=== PATIENT | female | born 1990 | race African-American/Black ===

== ENCOUNTER 2022-02-11 17:54 | Emergency (ER) | payer MEDICAID ==
[~2022-02-11] VITALS: Ht 165.1 cm; Wt 175.0 kg
[2022-02-11 21:00] VITALS: BP 166/89
--- NOTE | 2022-02-11 21:44 | RAD ---
Exam: Right knee 3 views INDICATION: Chronic pain, swelling TECHNIQUE: Frontal, lateral and oblique views of the right knee Comparisons: None FINDINGS: Bone mineralization is normal. No acute or healed fractures. Soft tissues are unremarkable. Joint spa ashlee are well-maintained. IMPRESSION: No acute osseous abnormality Electronically signed by: Charley Chan MD (02/11/2022 9:41 PM) GERA
[2022-02-11] MEDS ORDERED: MELO7.5T5 PO (22:21)
[2022-02-11] MEDS ORDERED: METH4TAB2 PO (22:21)
--- NOTE | 2022-02-11 22:21 | PHYS DOC ---
Past Medical History Past Surgical History: No Surgical History Smoking Status: Never Smoker Alcohol Use: None General Adult EDM: Chief Complaint: KNEE SWELLING HPI: HPI: Patient is a 32 year old female who presents to the ED today complaining 6 out of 10 right knee pain, patient states pain has been going on for months. She states she has followed up with her own PCP and they could not find any acute cause for the pain. Patient denies any injury. States the pain is sharp and intermittent worse on walking. She states has been taking NSAIDs with no relief to the pain. Review of Systems: Review of Systems: Constitutional: Denies fever or chills. [] Musculoskeletal: Reports right knee pain Integument: Denies rash. [] Neurologic: Denies headache, focal weakness or sensory changes. [] [] Psychiatric: Denies depression or anxiety. [] Heart Score: C/O Chest Pain: N/A Risk Factors: Risk Factors: DM, Current or recent (<one month) smoker, HTN, HLP, family history of CAD, obesity. Risk Scores: Score 0 - 3: 2.5% MACE over next 6 weeks - Discharge Home Score 4 - 6: 20.3% MACE over next 6 weeks - Admit for Clinical Observation Score 7 - 10: 72.7% MACE over next 6 weeks - Early Invasive Strategies Allergies: Allergies: Allergies Coded Allergies Type Severity Reaction Last Updated Verified No Known Drug Allergies 02/11/22 No Physical Exam: PE: Constitutional: Well developed, well nourished, no acute distress, non-toxic appearance. [] Skin: Warm, dry, no erythema, no rash. [] Back: No tenderness, no CVA tenderness. [] Extremities: Morbidly obese patient, right knee with no obvious deformity, no tenderness, range of motion is intact to the exam difficult due to weight. +2 right pedal pulse. Cap refill less than 2 seconds of right lower extremity Neurologic: Alert and oriented X 3, normal motor function, normal sensory fun ction, no focal deficits noted. [] Psychologic: Affect normal, judgement normal, mood normal. [] Current Patient Data: Vital Signs: Vital Signs Date Time Temp Pulse Resp B/P (MAP) Pulse Ox O2 Delivery O2 Flow Rate FiO2 02/11/22 21:00 98.5 82 18 166/89 (114) 99 Room Air 98.5 EKG: EKG: [] Radiology/Procedures: Radiology/Procedures: []PROCEDURE: KNEE RIGHT 3V Exam: Right knee 3 views INDICATION: Chronic pain, swelling TECHNIQUE: Frontal, lateral and oblique views of the right knee Comparisons: None FINDINGS: Bone mineralization is normal. No acute or healed fractures. Soft tissues are unremarkable. Joint spaces are well-maintained. IMPRESSION: No acute osseous abnormality Electronically signed by: Charley Coleman MD (02/11/2022 9:41 PM) [facility] DICTATED and SIGNED BY: CHARLEY COLEMAN MD DATE: 02/11/222140 Course & Med Decision Making: Course & Med Decision Making Pertinent Labs and Imaging studies reviewed. (See chart for details) This a 32-year-old female patient presenting to the ED today with chronic right knee pain. Patient is morbidly obese. Right knee x-rays are negative for any acute findings. Discharge to home. Follow-up with Ortho in 1 week if pain persist. Ice elevation encouraged. Weight loss encouraged Dragon Disclaimer: Dragnatalio Disclaimer: This electronic medical record was generated, in whole or in part, using a voice recognition dictation system. Departure Departure Impression: Primary Impression: Chronic pain of right knee Disposition: 01 HOME / SELF CARE / HOMELESS Condition: STABLE Referrals: NO PCP (PCP) HILTON WADDELL Jr. DO follow up in one week Patient Instructions: Knee Pain, [id number] Additional Instructions: You were evaluated in the medicine for right knee pain, your right knee x-rays are negative for any acute findings. Try to ice and elevate the extremity. Please follow-up with the provided orthopedic doctor in 1 to 2 weeks if pain persist. Take the prescribed medications as ordered for your pain Scripts Meloxicam (MOBIC) 7.5 Mg Tablet 1 TAB PO DAILY, #14 TAB 1 Refill Prov: [employer] 02/11/22 Methylprednisolone (MEDROL) 4 Mg Tab.ds.pk 1 PKG PO UD, #1 PKG Prov: [employer] 02/11/22 [employer] Feb 11, 2022 22:21
== END 2022-02-11 22:25 | disposition home or self-care (01) ==
LOC: ER 17:54
DX: G89.29 Other chronic pain (principal); M25.561 Pain in right knee; E66.01 Morbid (severe) obesity due to excess calories; Z68.44 Body mass index [BMI] 60.0-69.9, adult
CPT/HCPCS: 73562; 99283